=== PATIENT | male | born 1965 | race Caucasian/White ===

== ENCOUNTER 2021-06-17 03:18 | Emergency (ER) | payer OTHER ==
[~2021-06-17] VITALS: Ht 167.6 cm; Wt 81.6 kg
[2021-06-17 03:18] VITALS: BP_SYST 143
[2021-06-17 03:35] VITALS: BP_SYST 112
--- NOTE | 2021-06-17 03:36 | NUR ---
CADEN Menendez examining patient.
== END 2021-06-17 03:36 | disposition home or self-care (01) ==
LOC: SED 03:18
DX: Z02.89 Encounter for other administrative examinations (principal)
CPT/HCPCS: 99283